=== PATIENT | male | born 1960 | race Caucasian/White ===

== ENCOUNTER 2016-05-30 09:14 | Inpatient (IN) | payer OTHER ==
[2016-05-30 09:21] VITALS: BMI 24.4
--- NOTE | 2016-05-30 09:24 | DR.GENAD ---
HPI - PCP Primary Care Physician: melissa - HPI Comment HPI Comment: PATIENT HAVE BRONCHITIS FOR SEVERAL DAYS. WAS PLACE ON ANTIBIOTICS BUT IS NOT HELPING. HE IS RUNNING FEVER, HAVE CHEST PAIN AND SOB AND ALSO PRODUCTIVE COUGH, YELLOW SPUTUM. WORSE TODAY. - Complaint/Symptoms Chief Complaint Doctors Comments: SOB AND PRODUCTVE COUGH WITH FEVER. Chief Complaint:: patient stated on 05-20-16 dr torres stated he had bronchitis and was put on meds for it. yesterday he started getting hard to breath and dizzy - Nurses notes reviewed Nurses Notes Review: Yes - Source History Provided: Patient - Mode of Arrival Mode of Arrival: Ambulatory - Timing Onset of Chief Complaint: 05/29/16 Came on: Suddenly - Duration Duration: Constant Duration: Days - Severity Severity: Moderate PMH - PMH Past Medical History: Yes Past Medical History: Hypertension Past Surgical History: Yes Surgical History: Cholecystectomy - Family History History of Family Medical Conditions: Yes Family Medical History: Diabetes Mellitus, Coronary Artery Disease, Hypertension - Social History Type of Tobacco Use: Cigarettes How many years tobacco product used: 42 Does any household member use tobacco: No Alcohol Use: None Do you use any recreational Drugs:: No Lives With: Family Lives Where: Home - infectious screening In the last 2 months have you had wt loss of >10#?: NO Have you had fever, night sweats or hemotysis?: No Have you traveled outside the country in the last 6 months?: No Isolation: Standard ROS - Review of Systems Constitutional: Chills, Fever, Malaise, Weakness, Fatigue, Loss of Appetite Eyes: No Symptoms Reported. negative: Eye Pain, Discharge ENTM: Nose Discharge, Nose Congestion, Throat Pain. negative: Ear Pain Respiratoy: Productive Cough, Short of Breath, Wheezing. negative: Hemoptysis Cardiovascular: Chest Pain, Palpitations Gastrointestinal/Abdominal: Nausea. negative: Abdominal Pain, Diarrhea, Vomiting Genitourinary: No Symptoms Reported, Hematuria. negative: Dysuria, Frequency Neurological: Headache, Weakness, Dizziness Musculoskeletal: Muscle Pain Integumentary: Dryness. negative: Juandice Hematologic/Lymphatic: Easy Bleeding, Easy Bruising Endocrine: No Symptoms Reported All Other Systems: Reviewed and Negative PE - Vital Signs Vitals: Temperature 98.7 F Pulse Rate [Left Brachial] 97 Pulse Rate 104 Respiratory Rate 18 Blood Pressure [Left Arm] 105/59 Blood Pressure 86/66 O2 Sat by Pulse Oximetry 99 - General Limitations: No Limitations General Appearance: Alert - Head Head Exam: Normal Inspection - Eyes Eye exam: Normal Appearance - ENT ENT Exam: Normal External Ear Exam External Ear Exam: Normal External Inspection TM/Canal Exam: Bilateral Normal Nose Exam: Normal Nose Exam Mouth Exam: Normal Inspection Throat Exam: Normal Inspection - Neck Neck Exam: Trachea Midline. negative: Tenderness, Meningismus, Lymphadenopathy - Chest Chest Inspection: Symmetric Chest Wall Rise - Respiratory Respiratory Exam: Respiratory Distress Respiratory Exam: Bilateral Wheezing, Bilateral Rhonchi - Abdominal Exam Abdominal Exam: Normal Inspection, Normal Bowel Sounds, Soft. negative: Tenderness - Extremities Extremities Exam: Normal Inspection - Back Back Exam: Normal Inspection - Neurologic Neurological Exam: Alert, Oriented X3 - Psychiatric Psychiatric Exam: Anxious - Skin Skin Exam: Normal Color MDM - Differential Diagnosis Differential Diagnosis: COPD, CHF, FL, PNEUMONIA, CHEST PAIN, UTI Course - Treatment Treatment: SEE ORDERS - Consultation Consultation Comments: DISCUSS PATIENT WITH DR. SALGADO. HE WILL ADMIT PATIENT. - Education/Counseling Education/Counseling: Patient, Education Educated On: Treatment, Diagnosis ROR - Labs Reviewed Laboratory Results Reviewed?: Yes Result Diagrams: 05/31/16 05:15 05/31/16 05:15 Laboratory: WBC 21.0 X10^3/uL (3.6-10.0) H* 05/30/16 09:35 RBC 4.37 X10^6/uL (4.7-6.0) L 05/30/16 09:35 Hgb 11.3 g/dL (13.5-18.0) L 05/30/16 09:35 Hct 34.5 % (42.0-54.0) L 05/30/16 09:35 MCV 78.8 fL (80.0-100.0) L 05/30/16 09:35 MCH 25.9 pg (27.0-34.0) L 05/30/16 09:35 MCHC 32.9 g/dL (33.0-35.0) L 05/30/16 09:35 RDW 15.7 % (11.6-16.5) 05/30/16 09:35 Plt Count 542 X10^3/uL (150.0-450.0) H 05/30/16 09:35 Plt Count Comment Adequate (ADEQUATE) 05/30/16 09:35 MPV 7.3 fL (7.4-11.0) L 05/30/16 09:35 Neut % 82.2 % (42.0-75.0) H 05/30/16 09:35 Lymph % 10.5 % (21.0-51.0) L 05/30/16 09:35 Boyd % 6.2 % (0.0-13.0) 05/30/16 09:35 Eos % 0.2 % (0.9-2.9) L 05/30/16 09:35 Baso % 0.9 % (0.2-1.0) 05/30/16 09:35 Neut # 17.3 x10^3/uL (2.2-4.8) H 05/30/16 09:35 Lymph # 2.2 X10^3/uL (1.3-2.9) 05/30/16 09:35 Boyd # 1.3 x10^3/uL (0.3-0.8) H 05/30/16 09:35 Eos # 0.0 x10^3/uL (0.0-0.2) 05/30/16 09:35 Baso # 0.2 X10^3/uL (0.0-0.1) H 05/30/16 09:35 Absolute Nucleated RBC 0.0 /100WBC 05/30/16 09:35 Plt Morphology Comment Normal (NORMAL) 05/30/16 09:35 RBC Morphology Abnormal (NORMAL) 05/30/16 09:35 Hypochromasia Slight A 05/30/16 09:35 Sodium 138 mmol/L (136-145) 05/30/16 09:35 Corrected Sodium 138 mmol/L (136-145) 05/30/16 09:35 Potassium 4.1 mmol/L (3.5-5.1) 05/30/16 09:35 Chloride 102 mmol/L (98-107) 05/30/16 09:35 Carbon Dioxide 23.7 mmol/L (21-32) 05/30/16 09:35 BUN 22 mg/dL (7-18) H 05/30/16 09:35 Creatinine 1.46 mg/dL (0.70-1.30) H 05/30/16 09:35 Est GFR (MDRD) Af Amer > 60 (>60) 05/30/16 09:35 Est GFR (MDRD) Non-Af 53 (>60) L 05/30/16 09:35 Glucose 114 mg/dL (65-99) H 05/30/16 09:35 Calcium 9.6 mg/dL (8.5-10.1) 05/30/16 09:35 Corrected Calcium 10.6 mg/dL (8.5-10.1) H 05/30/16 09:35 Total Bilirubin 0.40 mg/dL (0.2-1.0) 05/30/16 09:35 AST 19 Units/L (15-37) 05/30/16 09:35 ALT 35 Units/L (12-78) 05/30/16 09:35 Alkaline Phosphatase 311 Units/L (46-116) H 05/30/16 09:35 Creatine Kinase 25 Units/L (39-308) L 05/30/16 09:35 CK-MB (CK-2) < 1.0 ng/mL (0-4.0) 05/30/16 09:35 CK/CKMB % Calc 4.0 % (<4) 05/30/16 09:35 Troponin I < 0.02 ng/mL (0-1.5) 05/30/16 09:35 B-Natriuretic Peptide 21.8 pg/mL (0-79) 05/30/16 09:35 Total Protein 7.8 g/dL (6.4-8.2) 05/30/16 09:35 Albumin 2.8 g/dL (3.4-5.0) L 05/30/16 09:35 Globulin 5.0 g/dL (2.5-4.5) H 05/30/16 09:35 Albumin/Globulin Ratio 0.6 Ratio (1.1-2.1) L 05/30/16 09:35 - XRAY XRAY Interpreted by: Radiologist XRAY Findings: REPORT DISCUSS WITH PATIENT. - EKG Rhythm: NSR (EKG NOTED) - Diagnosis Discharge Problem: Respiratory distress, Hilar mass Pneumonia Qualifiers: Pneumonia type: due to unspecified organism Lung location: middle lobe of lung - Discharge Plan Disposition: ADMITTED INPATIENT Condition: Stable - Follow ups/Referrals - Instructions
[2016-05-30 10:01] LABS: BASOPHILS # (AUTO) 0.2 X10^3/uL (0.0-0.1); BASOPHILS % (AUTO) 0.9 % (0.2-1.0); EOSINOPHILS % (AUTO) 0.2 % (0.9-2.9); HEMATOCRIT 34.5 % (42.0-54.0); HEMOGLOBIN 11.3 g/dL (13.5-18.0); LYMPHOCYTES # (AUTO) 2.2 X10^3/uL (1.3-2.9); LYMPHOCYTES % (AUTO) 10.5 % (21.0-51.0); MEAN CORPUSCULAR HEMOGLOBIN 25.9 pg (27.0-34.0); MEAN CORPUSCULAR HGB CONC 32.9 g/dL (33.0-35.0); MEAN CORPUSCULAR VOLUME 78.8 fL (80.0-100.0); MEAN PLATELET VOLUME 7.3 fL (7.4-11.0); MONOCYTES # (AUTO) 1.3 x10^3/uL (0.3-0.8); MONOCYTES % (AUTO) 6.2 % (0.0-13.0); NEUTROPHILS # (AUTO) 17.3 x10^3/uL (2.2-4.8); NEUTROPHILS % (AUTO) 82.2 % (42.0-75.0); PLATELET COUNT 542 X10^3/uL (150.0-450.0); RED BLOOD COUNT 4.37 X10^6/uL (4.7-6.0); RED CELL DISTRIBUTION WIDTH 15.7 % (11.6-16.5)
[2016-05-30 10:09] LABS: CREATINE KINASE 25 Units/L (39-308); CREATINE KINASE MB < 1.0 ng/mL (0-4.0); TROPONIN I < 0.02 ng/mL (0-1.5)
[2016-05-30] MEDS: ASPIRIN 81 MG CHEWTAB PO SCH (10:14)
[2016-05-30 10:16] LABS: B-TYPE NATRIURETIC PEPTIDE 21.8 pg/mL (0-79)
[2016-05-30 10:22] LABS: HYPOCHROMASIA SLIGHT; PLATELET MORPHOLOGY COMMENT NORMAL (NORMAL)
--- NOTE | 2016-05-30 10:34 | RAD ---
Examination: Chest x-ray. Clinical history: Shortness of breath, left-sided chest pain with coughing. Technique: A single portable AP view of the chest was obtained. Comparison: None available. Findings: The cardiac silhouette is normal in size. No pneumothorax or pleural effusion is noted. There is a confluent masslike opacity present in the left hilar region, which could be due to an are a of atelectasis or pneumonia. A left hilar mass cannot be excluded. Clinical correlation with the p atient's symptoms is recommended. If the patient does not have symptoms of pneumonia, a CT of the ch est, with intravenous contrast, is recommended for further evaluation. If the patient does have symp toms of pneumonia, continued followup is recommended until resolution. No acute osseous abnormality is noted. Impression: 1. There is a confluent masslike opacity present in the left hilar region, which could be due to an area of atelectasis or pneumonia. A left hilar mass cannot be excluded. Clinical correlation with th e patient's symptoms is recommended. If the patient does not have symptoms of pneumonia, a CT of the chest, with intravenous contrast, is recommended for further evaluation. If the patient does have s ymptoms of pneumonia, continued followup is recommended until resolution. Reported By:
[2016-05-30] MEDS ORDERED: ROCEPHIN VIAL 1 GM 1 GM in NS 50 ML IV + SPIKE MINIBAG* 50 ML IV ONE (10:39)
[2016-05-30 10:53] LABS: ALANINE AMINOTRANSFERASE 35 Units/L (12-78); ALBUMIN 2.8 g/dL (3.4-5.0); ALKALINE PHOSPHATASE 311 Units/L (46-116); ASPARTATE AMINO TRANSFERASE 19 Units/L (15-37); BLOOD UREA NITROGEN 22 mg/dL (7-18); CALCIUM 9.6 mg/dL (8.5-10.1); CARBON DIOXIDE 23.7 mmol/L (21-32); CHLORIDE 102 mmol/L (98-107); COR CA(FOR HYPOALB) 10.6 mg/dL (8.5-10.1); COR NA(FOR HYPERGLY) 138 mmol/L (136-145); CREATININE 1.46 mg/dL (0.70-1.30); GLUCOSE 114 mg/dL (65-99); SODIUM 138 mmol/L (136-145); TOTAL PROTEIN 7.8 g/dL (6.4-8.2); eGFR BLACK RACES > 60 (>60); eGFR NON BLACK RACES 53 (>60)
[2016-05-30] MEDS ORDERED: SALINE 3% 15 ML NEB TX ONE (11:01)
[2016-05-30] MEDS ORDERED: ROCEPHIN 1 GM IV PREMIX * OUT OF STOCK 50 ML IV ONE (11:07)
[2016-05-30] MEDS ORDERED: NS 1/2 1000 ML IV 1,000 ML IV ONE (11:08)
[2016-05-30] MEDS: NS 1/2 1000 ML IV 1,000 ML IV SCH (11:11)
[2016-05-30] MEDS ORDERED: TUSSIONEX PENNKINETIC SUSP PO PRN (11:28)
[2016-05-30] MEDS ORDERED: CONSULT PHARMACY - ANTIBIOTIC XX SCH (12:00)
[2016-05-30] MEDS: ROBITUSSIN DM PO SCH ×3 (13:06→21:39)
[2016-05-30] MEDS: XANAX PO SCH ×2 (13:06→21:39)
[2016-05-30] MEDS: LEVAQUIN PREMIX IV 750 MG 750 MG/150 ML BAG IV SCH (13:07)
[2016-05-30] MEDS: DUONEB 0.5 MG/3 MG NEB SCH ×3 (13:10→21:55)
[2016-05-30] MEDS ORDERED: PATIENT'S HOME MEDICATION RESPIRATORY (Alprazolam [Xanax 1 Mg] 1 MG) PO SCH (14:00)
[2016-05-30] MEDS ORDERED: PREVNAR 13 IM ONE (14:20)
[2016-05-30] MEDS: NICODERM PATCH 21 MG/24 HR TD SCH (17:06)
[2016-05-30] MEDS ORDERED: DUONEB 0.5 MG/3 MG ONE (18:14)
[2016-05-30] MEDS ORDERED: XYLOCAINE 1 % (PLAIN) ONE (19:06)
[2016-05-30] MEDS ORDERED: ADACEL TDaP IM ONE (19:06)
[2016-05-30] MEDS: PHENERGAN INJ 25 MG IV PRN (19:30)
[2016-05-30] MEDS: MORPHINE SULFATE INJ 4 MG IVP PRN (19:30)
[2016-05-30] MEDS: SOMA TAB 350 MG PO SCH (21:39)
[2016-05-31] MEDS: DUONEB 0.5 MG/3 MG NEB SCH ×6 (01:36→21:52)
[2016-05-31] MEDS ORDERED: NS 1/2 1000 ML IV 1,000 ML IV ONE ×2 (01:38→15:16)
[2016-05-31] MEDS: NS 1/2 1000 ML IV 1,000 ML IV SCH ×2 (01:40→16:25)
[2016-05-31] MEDS: PHENERGAN INJ 25 MG IV PRN (05:37)
[2016-05-31] MEDS: XANAX PO SCH ×3 (05:37→21:21)
[2016-05-31] MEDS: MORPHINE SULFATE INJ 4 MG IVP PRN ×3 (05:37→18:29)
[2016-05-31 06:19] LABS: BASOPHILS # (AUTO) 0.1 X10^3/uL (0.0-0.1); BASOPHILS % (AUTO) 0.6 % (0.2-1.0); EOSINOPHILS # (AUTO) 0.2 x10^3/uL (0.0-0.2); EOSINOPHILS % (AUTO) 1.1 % (0.9-2.9); HEMATOCRIT 31.7 % (42.0-54.0); HEMOGLOBIN 10.2 g/dL (13.5-18.0); LYMPHOCYTES # (AUTO) 2.6 X10^3/uL (1.3-2.9); LYMPHOCYTES % (AUTO) 17.6 % (21.0-51.0); MEAN CORPUSCULAR HEMOGLOBIN 25.9 pg (27.0-34.0); MEAN CORPUSCULAR HGB CONC 32.1 g/dL (33.0-35.0); MEAN CORPUSCULAR VOLUME 80.5 fL (80.0-100.0); MEAN PLATELET VOLUME 7.1 fL (7.4-11.0); MONOCYTES # (AUTO) 0.7 x10^3/uL (0.3-0.8); MONOCYTES % (AUTO) 4.7 % (0.0-13.0); PLATELET COUNT 389 X10^3/uL (150.0-450.0); RED BLOOD COUNT 3.94 X10^6/uL (4.7-6.0); RED CELL DISTRIBUTION WIDTH 15.7 % (11.6-16.5); WHITE BLOOD COUNT 14.5 X10^3/uL (3.6-10.0)
[2016-05-31 06:20] LABS: ALANINE AMINOTRANSFERASE 33 Units/L (12-78); ALBUMIN 2.3 g/dL (3.4-5.0); ALKALINE PHOSPHATASE 266 Units/L (46-116); ASPARTATE AMINO TRANSFERASE 21 Units/L (15-37); BLOOD UREA NITROGEN 16 mg/dL (7-18); CALCIUM 8.6 mg/dL (8.5-10.1); CARBON DIOXIDE 24.1 mmol/L (21-32); CHLORIDE 104 mmol/L (98-107); COR NA(FOR HYPERGLY) 138 mmol/L (136-145); CREATININE 0.95 mg/dL (0.70-1.30); GLUCOSE 119 mg/dL (65-99); SODIUM 138 mmol/L (136-145); TOTAL PROTEIN 6.8 g/dL (6.4-8.2); eGFR BLACK RACES > 60 (>60); eGFR NON BLACK RACES > 60 (>60)
[2016-05-31 06:50] LABS: PLATELET MORPHOLOGY COMMENT NORMAL (NORMAL)
[2016-05-31] MEDS: ROCEPHIN VIAL 1 GM 1 GM in NS 50 ML IV + SPIKE MINIBAG* 50 ML IV SCH (08:30)
[2016-05-31] MEDS: LEVAQUIN PREMIX IV 750 MG 750 MG/150 ML BAG IV SCH (08:49)
[2016-05-31] MEDS: ROBITUSSIN DM PO SCH ×4 (08:51→21:22)
[2016-05-31] MEDS: SOMA TAB 350 MG PO SCH ×2 (08:52→21:21)
[2016-05-31] MEDS: ASPIRIN 81 MG CHEWTAB PO SCH (08:52)
[2016-05-31] MEDS: NICODERM PATCH 21 MG/24 HR TD SCH (08:56)
[2016-05-31] MEDS ORDERED: XANAX ONE (21:17)
[2016-06-01] MEDS: DUONEB 0.5 MG/3 MG NEB SCH ×6 (01:35→20:36)
[2016-06-01] MEDS ORDERED: NS 1/2 1000 ML IV 1,000 ML IV ONE ×2 (05:08→22:08)
[2016-06-01] MEDS ORDERED: XANAX ONE (05:09)
[2016-06-01] MEDS: NS 1/2 1000 ML IV 1,000 ML IV SCH ×3 (05:13→21:48)
[2016-06-01] MEDS: XANAX PO SCH (05:13)
[2016-06-01] MEDS ORDERED: NS 100 ML IV 100 ML IV ONE (06:43)
--- NOTE | 2016-06-01 08:15 | CT ---
HISTORY: Left-sided mass Study: CT chest with contrast Comparison: Chest radiograph 05/30/2016 Technique: Multiple axial images of the chest were obtained from the thoracic inlet to the upper abd omen after the administration of IV contrast. Dose reduction techniques including Automated Exposur e Control (AEC) and adjustment of mA and kV were utilized. Findings: There is a cavitary mass in the superior segment of the left lower lobe containing pockets of fluid and gas as well some debris. This mass measures approximately 4.5 x 3.8 x 7.0 cm and abuts the poste rior medial chest wall. This mass may communicate with the adjacent bronchioles. There is trace reac tive pleural fluid seen. There is an additional soft tissue left posterior hilar mass measuring 3.6 x 3.4 by 3.2 cm that may represent an enlarged lymph node or possibly a malignancy. There are emphysematous changes in the lungs with scattered areas of atelectasis. No pneumothorax or pleural effusion on the right side. There are some mildly prominent sub-carinal lymph nodes present . The heart size is normal. No pericardial effusion. The aorta is unremarkable. The soft tissues and osseous structures appear intact. The visualized portions of the upper abdomen are grossly unremarkable. There are multiple bilateral renal cysts noted. The gallbladder is removed . IMPRESSION: 1. There is a cavitary mass in the superior segment of the left lower lobe containing pockets of fl uid and gas and debris measuring approximately 4.5 x 3.8 x 7.0 cm, abutting the posterior medial memo st wall. The findings are concerning for an abscess. There is reactive pleural fluid seen adjacent t o the lesion. Cavitary malignancy is not completely excluded. 2. There is an enlarged lymph node in the posterior left hilar region abutting the cavitary mass ahsan suring 3.6 x 3.4 x 3.2 cm that may represent reactive adenopathy versus metastatic disease related t o malignancy. 3. Emphysematous changes. Reported By:
[2016-06-01] MEDS: ROCEPHIN VIAL 1 GM 1 GM in NS 50 ML IV + SPIKE MINIBAG* 50 ML IV SCH (09:45)
[2016-06-01] MEDS: LEVAQUIN PREMIX IV 750 MG 750 MG/150 ML BAG IV SCH (09:45)
[2016-06-01] MEDS: NICODERM PATCH 21 MG/24 HR TD SCH (09:46)
[2016-06-01] MEDS: ROBITUSSIN DM PO SCH ×4 (09:48→21:41)
[2016-06-01] MEDS: ASPIRIN 81 MG CHEWTAB PO SCH (09:48)
[2016-06-01] MEDS: SOMA TAB 350 MG PO SCH ×2 (09:49→21:41)
[2016-06-01] MEDS: NORCO 10/325 TAB PO PRN (21:46)
[2016-06-01] MEDS: XANAX PO PRN (21:46)
[2016-06-02] MEDS: DUONEB 0.5 MG/3 MG NEB SCH ×3 (01:11→08:20)
[2016-06-02 05:48] LABS: ALANINE AMINOTRANSFERASE 51 Units/L (12-78); ALBUMIN 2.4 g/dL (3.4-5.0); ALKALINE PHOSPHATASE 292 Units/L (46-116); ASPARTATE AMINO TRANSFERASE 29 Units/L (15-37); BLOOD UREA NITROGEN 9 mg/dL (7-18); CALCIUM 9.2 mg/dL (8.5-10.1); CHLORIDE 105 mmol/L (98-107); COR CA(FOR HYPOALB) 10.5 mg/dL (8.5-10.1); CREATININE 0.73 mg/dL (0.70-1.30); GLUCOSE 91 mg/dL (65-99); SODIUM 142 mmol/L (136-145); TOTAL PROTEIN 6.9 g/dL (6.4-8.2); eGFR BLACK RACES > 60 (>60); eGFR NON BLACK RACES > 60 (>60)
[2016-06-02 05:56] LABS: BASOPHILS # (AUTO) 0.1 X10^3/uL (0.0-0.1); BASOPHILS % (AUTO) 0.7 % (0.2-1.0); EOSINOPHILS # (AUTO) 0.3 x10^3/uL (0.0-0.2); EOSINOPHILS % (AUTO) 2.8 % (0.9-2.9); HEMOGLOBIN 10.2 g/dL (13.5-18.0); LYMPHOCYTES # (AUTO) 2.9 X10^3/uL (1.3-2.9); MEAN CORPUSCULAR HEMOGLOBIN 25.7 pg (27.0-34.0); MEAN CORPUSCULAR VOLUME 80.2 fL (80.0-100.0); MEAN PLATELET VOLUME 7.4 fL (7.4-11.0); MONOCYTES % (AUTO) 8.6 % (0.0-13.0); NEUTROPHILS # (AUTO) 6.8 x10^3/uL (2.2-4.8); NEUTROPHILS % (AUTO) 61.9 % (42.0-75.0); PLATELET COUNT 417 X10^3/uL (150.0-450.0); RED BLOOD COUNT 3.98 X10^6/uL (4.7-6.0); WHITE BLOOD COUNT 11.1 X10^3/uL (3.6-10.0)
[2016-06-02 06:55] LABS: HYPOCHROMASIA SLIGHT; PLATELET MORPHOLOGY COMMENT NORMAL (NORMAL)
[2016-06-02] MEDS: NICODERM PATCH 21 MG/24 HR TD SCH (10:18)
[2016-06-02] MEDS: LEVAQUIN PREMIX IV 750 MG 750 MG/150 ML BAG IV SCH (10:18)
[2016-06-02] MEDS: ROCEPHIN VIAL 1 GM 1 GM in NS 50 ML IV + SPIKE MINIBAG* 50 ML IV SCH (10:18)
[2016-06-02] MEDS: ROBITUSSIN DM PO SCH (10:19)
[2016-06-02] MEDS: ASPIRIN 81 MG CHEWTAB PO SCH (10:19)
[2016-06-02] MEDS: SOMA TAB 350 MG PO SCH (10:19)
[2016-06-02] MEDS: NORCO 10/325 TAB PO PRN (10:26)
[2016-06-02] MEDS: XANAX PO PRN (10:27)
[2016-06-02 12:15] VITALS: BP 132/79
== END 2016-06-02 12:15 | disposition home or self-care (01) | DRG 195 ==
LOC: ER 09:14 → OBS 11:22 → MED/SURG 06-01 17:31
PROVIDERS: ADMIT Internal Medicine; ATTEND Internal Medicine
DX: J18.1 Lobar pneumonia, unspecified organism (principal); R06.09 Other forms of dyspnea; J44.9 Chronic obstructive pulmonary disease, unspecified; R07.89 Other chest pain; R06.02 Shortness of breath; I10 Essential (primary) hypertension; R91.8 Other nonspecific abnormal finding of lung field; D72.828 Other elevated white blood cell count; D64.89 Other specified anemias
CPT/HCPCS: 36415; 71010; 71260; 80053; 82550; 82553; 83880; 84484; 85025; 87040; 87070; 87205; 93005; 93010; 94640; 94760; 96365; 96374; 99284; A4222; 90670; J0696; J1956; J2001; J2270; J2550; J7620

== ENCOUNTER 2017-02-06 12:38 | Observation (INO) | payer SELFPAY ==
[2017-02-06 12:56] VITALS: BMI 21.1
[2017-02-06 13:16] LABS: BASOPHILS # (AUTO) 0.1 X10^3/uL (0.0-0.1); BASOPHILS % (AUTO) 0.4 % (0.2-1.0); EOSINOPHILS % (AUTO) 0.2 % (0.9-2.9); HEMATOCRIT 28.7 % (42.0-54.0); HEMOGLOBIN 9.1 g/dL (13.5-18.0); LYMPHOCYTES # (AUTO) 1.3 X10^3/uL (1.3-2.9); LYMPHOCYTES % (AUTO) 4.4 % (21.0-51.0); MEAN CORPUSCULAR HEMOGLOBIN 26.1 pg (27.0-34.0); MEAN CORPUSCULAR HGB CONC 31.7 g/dL (33.0-35.0); MEAN CORPUSCULAR VOLUME 82.4 fL (80.0-100.0); MEAN PLATELET VOLUME 6.9 fL (7.4-11.0); MONOCYTES # (AUTO) 1.9 x10^3/uL (0.3-0.8); MONOCYTES % (AUTO) 6.1 % (0.0-13.0); NEUTROPHILS # (AUTO) 27.3 x10^3/uL (2.2-4.8); NEUTROPHILS % (AUTO) 88.9 % (42.0-75.0); PLATELET COUNT 512 X10^3/uL (150.0-450.0); RED BLOOD COUNT 3.49 X10^6/uL (4.7-6.0); RED CELL DISTRIBUTION WIDTH 18.3 % (11.6-16.5)
[2017-02-06 13:26] LABS: WHITE BLOOD COUNT 30.7 X10^3/uL (3.6-10.0)
[2017-02-06 13:27] LABS: ALANINE AMINOTRANSFERASE 64 Units/L (12-78); ALBUMIN 2.2 g/dL (3.4-5.0); ALKALINE PHOSPHATASE 456 Units/L (46-116); ASPARTATE AMINO TRANSFERASE 50 Units/L (15-37); BLOOD UREA NITROGEN 10 mg/dL (7-18); CALCIUM 10.1 mg/dL (8.5-10.1); CARBON DIOXIDE 28.7 mmol/L (21-32); CHLORIDE 94 mmol/L (98-107); COR CA(FOR HYPOALB) 11.5 mg/dL (8.5-10.1); COR NA(FOR HYPERGLY) 135 mmol/L (136-145); SODIUM 134 mmol/L (136-145); TOTAL PROTEIN 7.9 g/dL (6.4-8.2); eGFR BLACK RACES > 60 (>60); eGFR NON BLACK RACES > 60 (>60)
[2017-02-06 13:32] LABS: LACTIC ACID 3.3 mmol/L (0.4-2.0)
[2017-02-06 13:37] LABS: BAND NEUTROPHILS % 3 % (0-10)
[2017-02-06 13:38] LABS: PLATELET MORPHOLOGY COMMENT NORMAL (NORMAL); SMUDGE CELLS NOTED
--- NOTE | 2017-02-06 13:40 | CT ---
History: Weakness and history of metastatic cancer Study: CT head without contrast. Sagittal and coronal reformations were provided. Comparison: None Findings: The ventricles and sulci are mildly prominent without mass effect. There is mild to moderat e diffuse periventricular white matter low attenuation. There is no intracranial hemorrhage or obviou s mass or edema. There is no subdural collection of fluid. The calvarium is intact. The paranasal sin uses are grossly clear. The subarachnoid spaces are mildly prominent. Impression: Mild atrophy and periventricular white-matter small-vessel disease. No definite acute disease is demo nstrated. Reported By:
--- NOTE | 2017-02-06 14:28 | RAD ---
Examination: Chest, PA and lateral views History: Fever, SOB, lung CA with Mets Comparison reference 05/30/2016 Findings: There is a large indistinct mass density in the left hilar area with peripheral extension i nto the surrounding parenchyma. No calcification is seen. The right lung is clear. There is no eviden ce for bone destruction or pleural effusion. Impression: Left hilar mass is larger and more prominent than previous examination. The appearance is consistent with the clinical history of lung carcinoma. Reported By:
--- NOTE | 2017-02-06 15:27 | DR.GENAD ---
HPI - PCP Primary Care Physician: CHARLES - HPI Comment HPI Comment: I was contacted by pt's. oncologist (Dr. Shankar) to request pt. be seen here and have repeat labs. + blood cultures. HIs WBC a few days ago was 40. There is a primary lung ca. with retroperitoneal and brain mes. The oncologist states that he had approached this pt. with recommendation for hospice care. he would like him on i.V. Zosyn after the labs. are drawn. His last chemo. was just over 2 weeks ago. He has no fever but admits to occassional chills. He has HAMPTON but that is old. He has poor appetite. He has no cough or dysuria. 0 - Complaint/Symptoms Chief Complaint:: PT C/O WEAKNESS AND DEHYDRATION. PT WAS SEEN BY DR SHANKAR AND WAS ASKED TO COME FOR DRHYDRATION. DR SHANKAR CONTACTED ER DEPT AND SPOKE WITH DR LEVIN. PT HAS METASTAIC CA ALL OVER. - Nurses notes reviewed Nurses Notes Review: Yes - Source History Provided: Patient, Other (Heme./Oncologist) - Mode of Arrival Mode of Arrival: Ambulatory - Timing Onset of Chief Complaint: 02/06/17 PMH - PMH Past Medical History: Yes Past Medical History: Hypertension Past Medical History Comment: LUNG CA. WITH RETROPERITONEAL AND BRAIN METS. Past Surgical History: Yes Surgical History: Cholecystectomy - Family History History of Family Medical Conditions: Yes Family Medical History: Diabetes Mellitus, Coronary Artery Disease, Hypertension - Social History Does patient currently use any type of tobacco product: Yes Have you used tobacco products in the last 12 months: Yes Type of Tobacco Use: Cigarettes Does any household member use tobacco: Yes Alcohol Use: None Do you use any recreational Drugs:: No Lives With: Family Lives Where: Home - infectious screening In the last 2 months have you had wt loss of >10#?: NO Have you had fever, night sweats or hemotysis?: No Have you traveled outside the country in the last 6 months?: No Isolation: Standard ROS - Review of Systems Constitutional: Malaise, Fatigue Eyes: No Symptoms Reported ENTM: No Symptoms Reported Respiratoy: Short of Breath (with activity) Cardiovascular: No Symptoms Reported Gastrointestinal/Abdominal: Other (Anorexia) Genitourinary: No Symptoms Reported Neurological: No Symptoms Reported Musculoskeletal: No Symptoms Reported Integumentary: No Symptoms Reported Hematologic/Lymphatic: No Symptoms Reported Endocrine: No Symptoms Reported Psychiatric: No Symptoms Reported All Other Systems: Reviewed and Negative PE - Vital Signs Vitals: Temperature 99.0 F Pulse Rate 135 Respiratory Rate 22 Blood Pressure [Right Radial 132/79 Artery] Blood Pressure [Left Arm] 124/82 Blood Pressure 156/86 O2 Sat by Pulse Oximetry 98 - General Limitations: No Limitations General Appearance: Alert, In No Apparent Distress - Head Head Exam: Normal Inspection - Eyes Eye exam: Normal Appearance - ENT ENT Exam: Normal Exam - Neck Neck Exam: Normal Inspection - Chest Chest Inspection: Normal Inspection - Respiratory Respiratory Exam: Normal Lung Sounds Bilat - Cardiovascular Cardiovascular Exam: Regular Rate, Normal Rhythm - Abdominal Exam Abdominal Exam: Normal Inspection, Normal Bowel Sounds, Soft - Extremities Extremities Exam: Normal Inspection - Back Back Exam: Normal Inspection - Neurologic Neurological Exam: Alert, Oriented X3, CN II-XII Intact - Psychiatric Psychiatric Exam: Normal Affect - Skin Skin Exam: Warm, Dry, Intact, Normal Color ROR - Labs Reviewed Result Diagrams: 02/06/17 12:56 02/06/17 12:56 Laboratory: WBC 30.7 X10^3/uL (3.6-10.0) H* 02/06/17 12:56 RBC 3.49 X10^6/uL (4.7-6.0) L 02/06/17 12:56 Hgb 9.1 g/dL (13.5-18.0) L 02/06/17 12:56 Hct 28.7 % (42.0-54.0) L 02/06/17 12:56 MCV 82.4 fL (80.0-100.0) 02/06/17 12:56 MCH 26.1 pg (27.0-34.0) L 02/06/17 12:56 MCHC 31.7 g/dL (33.0-35.0) L 02/06/17 12:56 RDW 18.3 % (11.6-16.5) H 02/06/17 12:56 Plt Count 512 X10^3/uL (150.0-450.0) H 02/06/17 12:56 Plt Count Comment Adequate (ADEQUATE) 02/06/17 12:56 MPV 6.9 fL (7.4-11.0) L 02/06/17 12:56 Neut % 88.9 % (42.0-75.0) H 02/06/17 12:56 Lymph % 4.4 % (21.0-51.0) L 02/06/17 12:56 [place] % 6.1 % (0.0-13.0) 02/06/17 12:56 Eos % 0.2 % (0.9-2.9) L 02/06/17 12:56 Baso % 0.4 % (0.2-1.0) 02/06/17 12:56 Neut # 27.3 x10^3/uL (2.2-4.8) H 02/06/17 12:56 Lymph # 1.3 X10^3/uL (1.3-2.9) 02/06/17 12:56 [place] # 1.9 x10^3/uL (0.3-0.8) H 02/06/17 12:56 Eos # 0.0 x10^3/uL (0.0-0.2) 02/06/17 12:56 Baso # 0.1 X10^3/uL (0.0-0.1) 02/06/17 12:56 Absolute Nucleated RBC 0.1 /100WBC 02/06/17 12:56 Total Counted 100 02/06/17 12:56 Neutrophils % (Manual) 91 % (39-76) H 02/06/17 12:56 Band Neutrophils % 3 % (0-10) 02/06/17 12:56 Lymphocytes % (Manual) 4 % (13-43) L 02/06/17 12:56 Monocytes % (Manual) 2 % (4-9) L 02/06/17 12:56 Smudge Cells Noted 02/06/17 12:56 Plt Morphology Comment Normal (NORMAL) 02/06/17 12:56 RBC Morphology Normal (NORMAL) 02/06/17 12:56 Sodium 134 mmol/L (136-145) L 02/06/17 12:56 Corrected Sodium 135 mmol/L (136-145) L 02/06/17 12:56 Potassium 3.9 mmol/L (3.5-5.1) 02/06/17 12:56 Chloride 94 mmol/L (98-107) L 02/06/17 12:56 Carbon Dioxide 28.7 mmol/L (21-32) 02/06/17 12:56 BUN 10 mg/dL (7-18) 02/06/17 12:56 Creatinine 0.90 mg/dL (0.70-1.30) 02/06/17 12:56 Est GFR (MDRD) Af Amer > 60 (>60) 02/06/17 12:56 Est GFR (MDRD) Non-Af > 60 (>60) 02/06/17 12:56 Glucose 134 mg/dL (65-99) H 02/06/17 12:56 Lactic Acid 3.3 mmol/L (0.4-2.0) H 02/06/17 12:56 Calcium 10.1 mg/dL (8.5-10.1) 02/06/17 12:56 Corrected Calcium 11.5 mg/dL (8.5-10.1) H 02/06/17 12:56 Total Bilirubin 0.50 mg/dL (0.2-1.0) 02/06/17 12:56 AST 50 Units/L (15-37) H 02/06/17 12:56 ALT 64 Units/L (12-78) 02/06/17 12:56 Alkaline Phosphatase 456 Units/L (46-116) H 02/06/17 12:56 Total Protein 7.9 g/dL (6.4-8.2) 02/06/17 12:56 Albumin 2.2 g/dL (3.4-5.0) L 02/06/17 12:56 Globulin 5.7 g/dL (2.5-4.5) H 02/06/17 12:56 Albumin/Globulin Ratio 0.4 Ratio (1.1-2.1) L 02/06/17 12:56 - Diagnosis Discharge Problem: Leukocytosis - Discharge Plan Disposition: ADMITTED INPATIENT Condition: Stable - Follow ups/Referrals Follow ups/Referrals: Jorge SOTO [Primary Care Provider] - 3 days - Instructions
[2017-02-06] MEDS ORDERED: HumuLIN R IV ONE (15:53)
[2017-02-06] MEDS ORDERED: SNACK - Diabetic Appropriate PO SCH (20:00)
[2017-02-07 06:10] LABS: BASOPHILS # (AUTO) 0.1 X10^3/uL (0.0-0.1); BASOPHILS % (AUTO) 0.4 % (0.2-1.0); EOSINOPHILS # (AUTO) 0.1 x10^3/uL (0.0-0.2); EOSINOPHILS % (AUTO) 0.5 % (0.9-2.9); HEMATOCRIT 25.9 % (42.0-54.0); HEMOGLOBIN 8.3 g/dL (13.5-18.0); LYMPHOCYTES # (AUTO) 1.6 X10^3/uL (1.3-2.9); LYMPHOCYTES % (AUTO) 6.5 % (21.0-51.0); MEAN CORPUSCULAR HEMOGLOBIN 26.1 pg (27.0-34.0); MEAN CORPUSCULAR HGB CONC 32.1 g/dL (33.0-35.0); MEAN CORPUSCULAR VOLUME 81.3 fL (80.0-100.0); MONOCYTES # (AUTO) 1.5 x10^3/uL (0.3-0.8); MONOCYTES % (AUTO) 6.1 % (0.0-13.0); NEUTROPHILS # (AUTO) 20.9 x10^3/uL (2.2-4.8); NEUTROPHILS % (AUTO) 86.5 % (42.0-75.0); PLATELET COUNT 463 X10^3/uL (150.0-450.0); RED BLOOD COUNT 3.18 X10^6/uL (4.7-6.0); RED CELL DISTRIBUTION WIDTH 18.7 % (11.6-16.5); WHITE BLOOD COUNT 24.2 X10^3/uL (3.6-10.0)
[2017-02-07 06:28] LABS: ALANINE AMINOTRANSFERASE 59 Units/L (12-78); ALBUMIN 1.9 g/dL (3.4-5.0); ALKALINE PHOSPHATASE 412 Units/L (46-116); ASPARTATE AMINO TRANSFERASE 49 Units/L (15-37); BLOOD UREA NITROGEN 11 mg/dL (7-18); CALCIUM 9.5 mg/dL (8.5-10.1); CARBON DIOXIDE 28.6 mmol/L (21-32); CHLORIDE 97 mmol/L (98-107); COR CA(FOR HYPOALB) 11.2 mg/dL (8.5-10.1); CREATININE 0.78 mg/dL (0.70-1.30); SODIUM 135 mmol/L (136-145); TOTAL PROTEIN 7.1 g/dL (6.4-8.2); eGFR BLACK RACES > 60 (>60); eGFR NON BLACK RACES > 60 (>60)
[2017-02-07] MEDS ORDERED: NORCO 10/325 TAB PO PRN (06:47)
[2017-02-07 06:56] LABS: BAND NEUTROPHILS % 4 % (0-10); PLATELET MORPHOLOGY COMMENT NORMAL (NORMAL)
[2017-02-07 07:20] VITALS: BP 95/59
== END 2017-02-07 10:20 | disposition home or self-care (01) ==
LOC: ER 12:51 → INTOOBSV 15:55 → OBS 15:55
PROVIDERS: ADMIT Internal Medicine; ATTEND Internal Medicine
DX: E86.0 Dehydration (principal); R53.1 Weakness; D72.829 Elevated white blood cell count, unspecified; C34.90 Malignant neoplasm of unspecified part of unspecified bronchus or lung; C79.31 Secondary malignant neoplasm of brain; Z92.21 Personal history of antineoplastic chemotherapy; R91.8 Other nonspecific abnormal finding of lung field
CPT/HCPCS: 36415; 70450; 71020; 80053; 83605; 85025; 87040; 93005; 93010; 96365; 99284; A4222; G0378